=== PATIENT | female | born 1980 | race Caucasian/White ===

== ENCOUNTER 2024-08-23 18:45 | Emergency (ER) | payer OTHER ==
[~2024-08-23] VITALS: Ht 152.4 cm; Wt 127.3 kg
[~2024-08-23 18:45] MED LIST: ACET-3385 PO; CEPH-558 PO; LEVO100 PO; LEVO75 PO; SEMA1PEN3 SQ
[2024-08-23 18:52] VITALS: BP 137/67; PULSE 81; RESP 20; TEMP 98.1; O2SAT 100
[2024-08-23] MEDS ORDERED: LEVO25TA9 PO (18:57)
[2024-08-23] MEDS ORDERED: LEVO200 PO (18:57)
[2024-08-23] MEDS ORDERED: TRAM50TA5 PO (22:22)
[2024-08-23] MEDS: TraMADol HCL 50 MG TABLET PO ONE (22:28)
[2024-08-23] MEDS: KETOROLAC TROMETHAMINE 30 MG/ML VIAL IM ONE (22:28)
[2024-08-24] MEDS ORDERED: TRAM50TA5 PO (10:01)
== END 2024-08-23 22:39 | disposition home or self-care (01) ==
LOC: EMS 18:50
DX: M76.62 Achilles tendinitis, left leg (principal); E03.9 Hypothyroidism, unspecified; Z90.49 Acquired absence of other specified parts of digestive tract
CPT/HCPCS: 99284; 73610; 73630; 96372; J1885